=== PATIENT | male | born 1970 | race African-American/Black ===

== ENCOUNTER 2018-07-30 13:02 | Emergency (ER) | payer OTHER ==
[~2018-07-30] VITALS: Wt 72.7 kg
[2018-07-30] MEDS ORDERED: KETOROLAC 30 MG INJ IM STA (16:31)
[2018-07-30 18:40] VITALS: BP 167/100; PULSE 74; RESP 18
--- NOTE | 2018-07-30 20:16 | ERD ---
ER Documentation Chief Complaint Chief Complaint bilat hip pain worsening; hx osteoarthritis no relief w norco ROS All systems reviewed and are negative except as per history of present illness. Allergies Allergies: Coded Allergies: No Known Allergy (Unverified , 07/30/18) PMhx/Soc Hx Alcohol Use: Yes Hx Substance Use: Yes Hx Tobacco Use: No Smoking Status: Never smoker Physical Exam Vitals Vital Signs Date Temp Pulse Resp B/P (MAP) Pulse Ox O2 O2 Flow FiO2 Time Delivery Rate 07/30/18 98.3 74 18 167/100 98 Room Air 18:40 (122) 07/30/18 97.9 80 16 138/85 100 14:00 (102) Physical Exam Const: No acute distress Head: Atraumatic Eyes: Normal Conjunctiva ENT: Normal External Ears, Nose and Mouth. Neck: Full range of motion. No meningismus. Resp: Clear to auscultation bilaterally Cardio: Regular rate and rhythm, no murmurs Abd: Soft, non tender, non distended. Normal bowel sounds Skin: No petechiae or rashes Back: No midline or flank tenderness Ext: No cyanosis, or edema Neur: Awake and alert Psych: Normal Mood and Affect Results 24 hrs Current Medications Medications Dose Sig/Melida Start Time Status Last (Trade) Ordered Route PRN Stop Time Admin Dose Reason Admin Ketorolac 30 mg ONCE STAT 07/30/18 DC 07/30/18 Tromethamine IM 16:31 16:39 (Toradol) 07/30/18 16:32 Departure Diagnosis: Primary Impression: Hip pain Condition: Fair Patient Instructions: Hip Precautions Referrals: [facility] YOU HAVE RECEIVED A MEDICAL SCREENING EXAM AND THE RESULTS INDICATE THAT YOU DO NOT HAVE A CONDITION THAT REQUIRES URGENT TREATMENT IN THE EMERGENCY DEPARTMENT. FURTHER EVALUATION AND TREATMENT OF YOUR CONDITION CAN WAIT UNTIL YOU ARE SEEN IN YOUR DOCTORS OFFICE WITHIN THE NEXT 1-2 DAYS. IT IS YOUR RESPONSIBILITY TO MAKE AN APPOINTMENT FOR FOLOW-UP CARE. IF YOU HAVE A PRIMARY DOCTOR --you should call your primary doctor and schedule an appointment IF YOU DO NOT HAVE A PRIMARY DOCTOR YOU CAN CALL OUR PHYSICIAN REFERRAL HOTLINE AT IF YOU CAN NOT AFFORD TO SEE A PHYSICIAN YOU CAN CHOSE FROM THE FOLLOWING [facility] CLINICS [facility] [address] [facility] [address] [facility] [address] [facility] [address] [facility] [address] [facility]. [facility] [address] Additional Instructions: Call your primary care doctor TOMORROW for an appointment during the next 1-2 days.See the doctor sooner or return here if your condition worsens before your appointment time. NAHUM MORENO DO Jul 30, 2018 20:16
== END 2018-07-30 18:41 | disposition home or self-care (01) ==
LOC: FTE 13:02
DX: M25.551 Pain in right hip (principal); M25.552 Pain in left hip
CPT/HCPCS: 73520; 96372; J1885; Z7502

== ENCOUNTER 2019-01-09 08:54 | Emergency (ER) | payer OTHER ==
[~2019-01-09] VITALS: Ht 165.1 cm; Wt 77.3 kg
[~2019-01-09 08:54] MED LIST: HYDR-3980 PO; NAPR-985 PO
[2019-01-09 09:03] VITALS: BP 118/71; PULSE 78; RESP 18; Ht 165.1 cm; Wt 77.3 kg
[2019-01-09] MEDS ORDERED: KETOROLAC 30 MG INJ IM STA (09:42)
[2019-01-09] MEDS ORDERED: KETOROLAC 60 MG INJ IM STA (09:46)
[2019-01-09] MEDS ORDERED: DEXAMETHASONE 10 MG/ML 1 ML INJ IM ONE (10:00)
--- NOTE | 2019-01-09 10:06 | ERD ---
ER Documentation Chief Complaint Chief Complaint bilateral hip pain denies injury HPI 48-year-old male with past medical history of severe osteoarthritis of bilateral hips who presents with complaint of bilateral hip pain. Describes worsening pain to bilateral hips that has limited his ability to ambulate. He denies any recent injury or fall. He denies any fevers or chills, redness, tenderness, worsening swelling of affected joints. He has been trying to get bilateral hip replacement surgery over the past 3 years but has been limited given to insurance issues. He has tried some [id number] pain medications as well as gabapentin for his symptoms. He otherwise is without complaint. ROS All systems reviewed and are negative except as per history of present illness. Medications Home Meds Active Scripts Naproxen* (Naprosyn*) 500 Mg Tablet, 500 MG PO BID PRN for PAIN AND/OR INFLAMMATION, #30 TAB Prov:AMISH CAROLINA-C 01/09/19 Hydrocodone/Acetaminophen (Hills 10-325 Tablet) 1 Each Tablet, 1 TAB PO Q6H PRN for PAIN, #10 TAB Prov:AMISH CAROLINA-Harrison 01/09/19 Allergies Allergies: Coded Allergies: No Known Allergy (Unverified , 01/09/19) PMhx/Soc Medical and Surgical Hx: pt denies Surgical Hx Hx Alcohol Use: Yes Hx Substance Use: Yes Hx Tobacco Use: No Smoking Status: Never smoker FmHx Family History: No diabetes, No coronary disease, No other Physical Exam Vitals Vital Signs Date Temp Pulse Resp B/P (MAP) Pulse Ox O2 O2 Flow FiO2 Time Delivery Rate 01/09/19 98.8 78 18 118/71 97 09:03 (87) Physical Exam I have reviewed the triage vital signs. Const: Well nourished, well developed, appears stated age Eyes: PERRL, no conjunctival injection HENT: NCAT, Neck supple without meningismus CV: RRR, Warm, well-perfused extremities RESP: CTAB, Unlabored respiratory effort GI: soft, non-tender, non-distended, no masses MSK: No gross deformities appreciated, only able to take a couple steps, unstable gait, severe pain, bilateral hip joint without erythema, significant swelling, exam limited by pain Skin: Warm, dry. No rashes Neuro: grossly non focal Psych: Appropriate mood and affect. Results 24 hrs Current Medications Medications Dose Sig/Melida Start Time Status Last (Trade) Ordered Route PRN Stop Time Admin Dose Reason Admin 10 mg ONCE ONCE 01/09/19 DC Dexamethasone IM 10:00 01/09/19 (Decadron) 10:00 Ketorolac 30 mg ONCE STAT 01/09/19 DC Tromethamine IM 09:42 01/09/19 (Toradol) 09:52 Ketorolac 60 mg ONCE STAT 01/09/19 DC 01/09/19 Tromethamine IM 09:46 01/09/19 09:56 (Toradol) 09:47 Procedures/MDM 48-year-old male with chronic severe osteoarthritis of bilateral hips who presents with complaint of bilateral hip pain. I have low suspicion for any acute emergent process requiring additional imaging or additional work-up other than below. Given patient's report of [id number] pathology likely related requires definitive treatment with bilateral hip replacements. Will discharge patient with NSAID medications. Advised him to continue to follow-up with his PMD for surgical referral. ED course: Toradol, improve in ED Will discharge with Hills, naproxen The patient has been warned about the use of narcotics. The patient should not drive or operate heavy machinery while taking this medication. The patient was also warned about the addictive properties of narcotic medications. [Narcan prescription was NOT provided given the following criteria 1. No more than 10 tablets of Hills were prescribed. 2. Concomitant opiate and benzodiazepine prescriptions were not provided. 3. There is no obvious evidence of prior history of opiate abuse or overdose.] DISPOSITION PLAN: We discussed follow up with the patient's primary care doctor within 24 to 48 hours. Patient counseled regarding my diagnostic impression and care plan. Prior to discharge all questions answered. Pt agrees with treatment plan and understands strict return precautions. Precautionary instructions provided including instructions to return to the ER if not improving or for any worsening or changing symptoms or concerns. Disclaimer: Inadvertent spelling and grammatical errors are likely due to EHR/dictation software use and do not reflect on the overall quality of patient care. Also, please note that the electronic time recorded on this note does not necessarily reflect the actual time of the patient encounter. Departure Diagnosis: Primary Impression: Hip pain Condition: Stable Patient Instructions: Osteoarthritis: Common Sites Referrals: [facility] YOU HAVE RECEIVED A MEDICAL SCREENING EXAM AND THE RESULTS INDICATE THAT YOU DO NOT HAVE A CONDITION THAT REQUIRES URGENT TREATMENT IN THE EMERGENCY DEPARTMENT. FURTHER EVALUATION AND TREATMENT OF YOUR CONDITION CAN WAIT UNTIL YOU ARE SEEN IN YOUR DOCTORS OFFICE WITHIN THE NEXT 1-2 DAYS. IT IS YOUR RESPONSIBILITY TO MAKE AN APPOINTMENT FOR FOLOW-UP CARE. IF YOU HAVE A PRIMARY DOCTOR --you should call your primary doctor and schedule an appointment IF YOU DO NOT HAVE A PRIMARY DOCTOR YOU CAN CALL OUR PHYSICIAN REFERRAL HOTLINE AT IF YOU CAN NOT AFFORD TO SEE A PHYSICIAN YOU CAN CHOSE FROM THE FOLLOWING [facility] CL[facility]ICS [facility] [address] [facility]. [facility] [address] [facility] [address] [facility] [facility] [address] [facility]. [facility] [address] [facility]. [facility]. [address] Additional Instructions: Call your primary care doctor TOMORROW for an appointment during the next 2-3 days.See the doctor sooner or return here if your condition worsens before your appointment time. AMISH CAROLINA PA-C Jan 09, 2019 10:06
== END 2019-01-09 10:20 | disposition home or self-care (01) ==
LOC: FTE 08:54
DX: M25.551 Pain in right hip (principal); M25.552 Pain in left hip
CPT/HCPCS: 96372; J1885; Z7502